=== PATIENT | female | born 1975 | race Caucasian/White ===

== ENCOUNTER 2018-07-05 20:44 | Emergency (ER) | payer MEDICAID ==
[~2018-07-05] VITALS: Ht 152.4 cm; Wt 61.3 kg
[2018-07-05 21:19] VITALS: BP 135/103; Ht 152.4 cm; Wt 61.3 kg
== END 2018-07-05 22:15 | disposition home or self-care (01) ==
LOC: ED 20:44
DX: R21 Rash and other nonspecific skin eruption (principal); L29.9 Pruritus, unspecified